=== PATIENT | male | born 1960 | race Caucasian/White ===

== ENCOUNTER 2016-11-29 22:21 | Emergency (ER) | payer MEDICARE, MEDICAID ==
[2016-11-30 01:25] VITALS: BP 102/76
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
== END 2016-11-30 01:24 | disposition home or self-care (01) ==
LOC: ED 22:21
DX: F10.129 Alcohol abuse with intoxication, unspecified (principal); R47.81 Slurred speech; F17.200 Nicotine dependence, unspecified, uncomplicated
CPT/HCPCS: 99283

== ENCOUNTER 2017-10-30 21:25 | Emergency (ER) | payer MEDICARE, MEDICAID ==
[2017-10-30 22:31] LABS: Benzodiazepine Urine Screen None Detected (None Detect)
[2017-10-30 22:36] LABS: Hematocrit 46 % (42-52); Hemoglobin 15.5 g/dl (14.0-18.0); Mean Corpuscular HGB Conc 34 g/dl (31-36); Mean Corpuscular Hemoglobin 34 pg (27-31); Mean Corpuscular Volume 100 fL (80-94); Mean Platelet Volume 9 um3 (7.4-10.4); Red Blood Count 4.57 10^6/ul (4.0-5.4); Red Cell Distribution Width 13 % (10.5-15); White Blood Count 7.3 10^3/ul (3.5-10.8)
[2017-10-30] MEDS ORDERED: cloNIDine TAB* 0.1 MG PO ONE (22:36)
[2017-10-30] MEDS ORDERED: LORazepam INJ* 2 MG/ML 1 ML VIAL IV PUSH ONE ×2 (22:36→23:23)
[2017-10-30 22:51] LABS: ALT 58 U/L (7-52); AST 33 U/L (13-39); Albumin 4.6 g/dL (3.2-5.2); Alkaline Phosphatase 77 U/L (34-104); Anion Gap 9 mmol/L (2-11); BUN/Creatinine Ratio 12.8 (8-20); Blood Urea Nitrogen 15 mg/dL (6-24); CO2 Carbon Dioxide 29 mmol/L (22-32); Calcium 10.2 mg/dL (8.6-10.3); Chloride 101 mmol/L (101-111); EGFR African American 82.3 (>60); Globulin 2.9 g/dL (2-4); Glucose 107 mg/dL (70-100); Magnesium 1.8 mg/dL (1.9-2.7); Potassium 3.4 mmol/L (3.5-5.0); Sodium 139 mmol/L (133-145); Total Protein 7.5 g/dL (6.4-8.9)
[2017-10-30 23:06] LABS: Acetaminophen < 15 mcg/mL; Alcohol < 10 mg/dL (<10); Salicylate < 2.50 mg/dL (<30)
[2017-10-30 23:20] LABS: TSH (Thyroid Stimulating Horm) 4.51 mcIU/mL (0.34-5.60)
[2017-10-31] MEDS ORDERED: OLANzapine TAB* 10 MG PO ONE (00:29)
[2017-10-31 00:34] VITALS: BP 180/104
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
== END 2017-10-31 03:06 | disposition home or self-care (01) ==
LOC: ED 21:25
DX: F39 Unspecified mood [affective] disorder (principal)
CPT/HCPCS: 36415; 80053; 80307; 80320; 80329; 83735; 84443; 85025; 93005; 96374; 96376; 99285; A9270-GY; G0480; J2060

== ENCOUNTER 2018-04-26 13:29 | Inpatient (IN) | payer MEDICARE, MEDICAID ==
[2018-04-26] MEDS ORDERED: NS 0.9% 1000 ML* 1,000 ML IV ONE (13:49)
[2018-04-26 14:30] LABS: ABS Basophils 0.1 10^3/ul (0-0.2); ABS Eosinophils 0 10^3/ul (0-0.6); ABS Lymphocytes 0.9 10^3/ul (1.0-4.8); ABS Monocytes 0.6 10^3/ul (0-0.8); ABS Neutrophils 4.8 10^3/ul (1.5-7.7); ABS Nucleated RBC 0 10^3/ul; Eosinophil % 0.1 % (0-6); Hematocrit 38 % (42-52); Hemoglobin 12.8 g/dl (14.0-18.0); Mean Corpuscular HGB Conc 34 g/dl (31-36); Mean Corpuscular Hemoglobin 34 pg (27-31); Mean Corpuscular Volume 99 fL (80-94); Nucleated Red Blood Cells % 0.1; Platelet Count 178 10^3/ul (150-450); Red Blood Count 3.78 10^6/ul (4.0-5.4); Red Cell Distribution Width 13 % (10.5-15); White Blood Count 6.4 10^3/ul (3.5-10.8)
[2018-04-26 14:42] LABS: EGFR Non-African American 64.7 (>60)
[2018-04-26] MEDS ORDERED: Iohexol 300* (CONTRAST) 10 ML SDV IV ONE (14:50)
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
[2018-04-26 15:28] LABS: INR 0.82 (0.77-1.02)
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
[2018-04-26] MEDS ORDERED: Morphine VIAL* 4 MG/ML VIAL (1 ml vial) IV ONE (15:49)
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
[2018-04-26 16:22] LABS: Urine Appearance Clear; Urine Blood 2+ (Negative); Urine Color Yellow; Urine Ketones Negative (Negative); Urine Protein Negative (Negative); Urine Specific Gravity 1.015 (1.010-1.030); Urine Urobilinogen Negative (Negative)
[2018-04-26] MEDS ORDERED: PROCHLORPERAZINE INJ 5 MG/ML 2 ML VIAL IV PRN (18:18)
--- NOTE | 2018-04-26 18:41 | PN ---
Progress Note - Progress Note Date of Service: 04/26/18 Note: The following pictures were taken in the ER at the time of admission on 04/26/18 with the patient's consent:
[2018-04-26] MEDS: clonazePAM TAB(*) 1 MG PO SCH (20:20)
[2018-04-26] MEDS: carBAMazepine ER TAB(*) 200 MG PO SCH (21:29)
[2018-04-26] MEDS: Heparin VIAL(*) 5000 UNITS/ML VIAL (FIVE THOUSAND) SUBCUT SCH (21:29)
[2018-04-26] MEDS: Morphine VIAL* 4 MG/ML VIAL (1 ml vial) IV PRN (21:29)
[2018-04-26] MEDS: OLANzapine TAB* 10 MG PO SCH (21:30)
[2018-04-26] MEDS ORDERED: Ramelteon (NF) 8 MG TAB PO SCH (23:45)
[2018-04-27] MEDS ORDERED: CMCS Melatonin (NF) 3 MG TAB PO PRN (00:08)
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
[2018-04-27] MEDS: Heparin VIAL(*) 5000 UNITS/ML VIAL (FIVE THOUSAND) SUBCUT SCH ×3 (05:36→21:35)
[2018-04-27] MEDS: Morphine VIAL* 4 MG/ML VIAL (1 ml vial) IV PRN ×4 (05:36→20:38)
[2018-04-27 06:23] LABS: Hematocrit 36 % (42-52); Hemoglobin 12.3 g/dl (14.0-18.0); Mean Corpuscular HGB Conc 35 g/dl (31-36); Mean Corpuscular Hemoglobin 34 pg (27-31); Mean Corpuscular Volume 100 fL (80-94); Mean Platelet Volume 8.5 um3 (7.4-10.4); Platelet Count 150 10^3/ul (150-450); Red Blood Count 3.57 10^6/ul (4.0-5.4); Red Cell Distribution Width 13 % (10.5-15); White Blood Count 4.6 10^3/ul (3.5-10.8)
[2018-04-27] MEDS: carBAMazepine ER TAB(*) 200 MG PO SCH ×2 (07:37→21:29)
[2018-04-27] MEDS: Omeprazole CAP* 20 MG PO SCH (07:37)
[2018-04-27] MEDS: clonazePAM TAB(*) 1 MG PO SCH ×3 (07:37→21:27)
[2018-04-27] MEDS: OLANzapine TAB* 10 MG PO SCH ×2 (07:38→21:31)
[2018-04-27] MEDS: Nicotine PATCH 21 MG/24 HR* PATCH TRANSDERM SCH (14:20)
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
[2018-04-27 16:25] LABS: EGFR Non-African American 78.6 (>60)
[2018-04-27] MEDS ORDERED: Mouth Piece, Nicotine* 1 EACH CARTRIDGE INH PRN (22:59)
[2018-04-28] MEDS ORDERED: Morphine VIAL* 4 MG/ML VIAL (1 ml vial) IV SCH
[2018-04-28] MEDS: Nicotine Inhaler* 10 MG AMP INH PRN ×2 (00:24→15:48)
[2018-04-28] MEDS: Mouth Piece, Nicotine* 1 EACH CARTRIDGE INH PRN (00:24)
[2018-04-28] MEDS: Morphine VIAL* 4 MG/ML VIAL (1 ml vial) IV PRN ×5 (00:25→21:37)
[2018-04-28] MEDS: Nicotine Patch Removal NOTE FOLLOW UP SCH ×2 (00:26→21:41)
[2018-04-28] MEDS: Heparin VIAL(*) 5000 UNITS/ML VIAL (FIVE THOUSAND) SUBCUT SCH ×3 (06:08→21:41)
[2018-04-28 06:52] LABS: EGFR Non-African American 95.2 (>60)
[2018-04-28] MEDS: Omeprazole CAP* 20 MG PO SCH (07:59)
[2018-04-28] MEDS: carBAMazepine ER TAB(*) 200 MG PO SCH ×2 (07:59→21:36)
[2018-04-28] MEDS: OLANzapine TAB* 10 MG PO SCH ×2 (08:00→21:35)
[2018-04-28] MEDS: clonazePAM TAB(*) 1 MG PO SCH ×3 (08:00→21:35)
[2018-04-28] MEDS: Nicotine PATCH 21 MG/24 HR* PATCH TRANSDERM SCH (08:00)
[2018-04-28] MEDS: Potassium Chlor TAB* 20 MEQ TAB.ER PO SCH ×4 (08:38→20:04)
[2018-04-28] MEDS ORDERED: oxyCODONE/Acetamin 5/325 MG* TAB PO PRN (14:56)
[2018-04-28] MEDS ORDERED: Acetaminophen TAB* 325 MG PO PRN (15:06)
[2018-04-28] MEDS ORDERED: Thiamine IV* 100 MG/ML 2 ML VIAL IM ONE (15:06)
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
[2018-04-28] MEDS: oxyCODONE/Acetamin 5/325 MG* TAB PO PRN ×2 (15:48→20:01)
[2018-04-28] MEDS ORDERED: Thiamine TAB* 100 MG TAB PO ONE (16:00)
[2018-04-28] MEDS: LORazepam TAB(*) 1 MG PO SCH ×2 (16:38→18:19)
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
[2018-04-29] MEDS: Heparin VIAL(*) 5000 UNITS/ML VIAL (FIVE THOUSAND) SUBCUT SCH ×3 (06:01→20:28)
[2018-04-29 06:29] LABS: EGFR Non-African American 85.6 (>60)
[2018-04-29] MEDS: carBAMazepine ER TAB(*) 200 MG PO SCH ×2 (08:50→20:26)
[2018-04-29] MEDS: Thiamine TAB* 100 MG TAB PO SCH (08:51)
[2018-04-29] MEDS: Omeprazole CAP* 20 MG PO SCH (08:51)
[2018-04-29] MEDS: Multivitamins/Minerals TAB PO SCH (08:51)
[2018-04-29] MEDS: Nicotine PATCH 21 MG/24 HR* PATCH TRANSDERM SCH (08:51)
[2018-04-29] MEDS: Folic Acid TAB* 1 MG PO SCH (08:51)
[2018-04-29] MEDS: OLANzapine TAB* 10 MG PO SCH ×2 (08:51→20:27)
[2018-04-29] MEDS: clonazePAM TAB(*) 1 MG PO SCH ×3 (08:51→20:26)
[2018-04-29] MEDS: LORazepam TAB(*) 1 MG PO SCH ×2 (11:49→14:03)
[2018-04-29] MEDS: oxyCODONE/Acetamin 5/325 MG* TAB PO PRN ×3 (11:52→20:25)
[2018-04-29] MEDS: Morphine VIAL* 4 MG/ML VIAL (1 ml vial) IV PRN ×2 (14:02→19:14)
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
[2018-04-29] MEDS: Nicotine Patch Removal NOTE FOLLOW UP SCH (20:29)
[2018-04-30] MEDS: Morphine VIAL* 4 MG/ML VIAL (1 ml vial) IV PRN ×2 (00:13→09:18)
[2018-04-30] MEDS: Heparin VIAL(*) 5000 UNITS/ML VIAL (FIVE THOUSAND) SUBCUT SCH ×3 (05:06→20:18)
[2018-04-30] MEDS: Folic Acid TAB* 1 MG PO SCH (08:12)
[2018-04-30] MEDS: clonazePAM TAB(*) 1 MG PO SCH ×5 (08:12→20:17)
[2018-04-30] MEDS: Multivitamins/Minerals TAB PO SCH (08:12)
[2018-04-30] MEDS: Omeprazole CAP* 20 MG PO SCH (08:12)
[2018-04-30] MEDS: Thiamine TAB* 100 MG TAB PO SCH (08:12)
[2018-04-30] MEDS: OLANzapine TAB* 10 MG PO SCH ×2 (08:12→20:16)
[2018-04-30] MEDS: carBAMazepine ER TAB(*) 200 MG PO SCH ×2 (08:13→20:16)
[2018-04-30] MEDS: Nicotine PATCH 21 MG/24 HR* PATCH TRANSDERM SCH (08:19)
[2018-04-30 08:25] LABS: EGFR Non-African American 85.6 (>60)
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
[2018-04-30] MEDS: Nicotine Inhaler* 10 MG AMP INH PRN (11:51)
[2018-04-30] MEDS: Atenolol TAB* 25 MG PO SCH (11:51)
[2018-04-30] MEDS: Mouth Piece, Nicotine* 1 EACH CARTRIDGE INH PRN (11:51)
[2018-04-30] MEDS: oxyCODONE/Acetamin 5/325 MG* TAB PO PRN ×3 (11:56→20:22)
[2018-04-30] MEDS: Nicotine Patch Removal NOTE FOLLOW UP SCH (20:23)
[2018-05-01 05:40] LABS: EGFR Non-African American 71.8 (>60)
[2018-05-01] MEDS: Heparin VIAL(*) 5000 UNITS/ML VIAL (FIVE THOUSAND) SUBCUT SCH ×3 (06:14→14:48)
[2018-05-01] MEDS: carBAMazepine ER TAB(*) 200 MG PO SCH (09:47)
[2018-05-01] MEDS: clonazePAM TAB(*) 1 MG PO SCH ×3 (09:48→14:42)
[2018-05-01] MEDS: Thiamine TAB* 100 MG TAB PO SCH (09:48)
[2018-05-01] MEDS: Multivitamins/Minerals TAB PO SCH (09:48)
[2018-05-01] MEDS: Omeprazole CAP* 20 MG PO SCH (09:48)
[2018-05-01] MEDS: Folic Acid TAB* 1 MG PO SCH (09:48)
[2018-05-01] MEDS: Nicotine PATCH 21 MG/24 HR* PATCH TRANSDERM SCH (09:49)
[2018-05-01] MEDS: Atenolol TAB* 25 MG PO SCH (09:49)
[2018-05-01] MEDS: OLANzapine TAB* 10 MG PO SCH (10:51)
[2018-05-01] MEDS: Nicotine Inhaler* 10 MG AMP INH PRN ×2 (10:54→14:41)
[2018-05-01] MEDS: oxyCODONE/Acetamin 5/325 MG* TAB PO PRN (10:55)
[2018-05-01] MEDS ORDERED: traMADol TAB* 50 MG PO PRN (11:45)
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
[2018-05-01] MEDS ORDERED: Potassium Chlor TAB* 10 MEQ TAB.ER PO SCH (16:00)
[2018-05-01] MEDS ORDERED: Atorvastatin* 20 MG TAB PO SCH (17:00)
[2018-05-01 18:57] VITALS: BP 167/90
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
[2018-05-02] MEDS ORDERED: Cyanocobalamin TAB* 500 MCG PO SCH (09:00)
== END 2018-05-01 17:00 | disposition home or self-care (01) | DRG 565 ==
LOC: ED 13:29 → MED 18:39
PROVIDERS: ADMIT Hospitalist; ATTEND Internal Medicine
DX: T79.6XXA Traumatic ischemia of muscle, initial encounter (principal); F10.239 Alcohol dependence with withdrawal, unspecified; Y04.2XXA Assault by strike against or bumped into by another person, initial encounter; G44.89 Other headache syndrome; F31.9 Bipolar disorder, unspecified; I10 Essential (primary) hypertension; E78.5 Hyperlipidemia, unspecified; Y90.0 Blood alcohol level of less than 20 mg/100 ml; F41.9 Anxiety disorder, unspecified; D53.9 Nutritional anemia, unspecified; K21.9 Gastro-esophageal reflux disease without esophagitis; K22.70 Barrett's esophagus without dysplasia; E87.6 Hypokalemia; S02.2XXA Fracture of nasal bones, initial encounter for closed fracture; F17.210 Nicotine dependence, cigarettes, uncomplicated; Z79.899 Other long term (current) drug therapy; Z88.8 Allergy status to other drugs, medicaments and biological substances; Z82.3 Family history of stroke; Z80.9 Family history of malignant neoplasm, unspecified; E04.1 Nontoxic single thyroid nodule; I45.10 Unspecified right bundle-branch block
CPT/HCPCS: 36415; 70450; 70486; 71260; 72125; 74177; 80048; 80053; 80156; 80307; 80320; 81003; 81015; 82550; 82607; 83540; 83550; 83605; 84484; 85025; 85027; 85610; 93005; 99283; A9270-GY; G0480; J1644; J2270; J3411; Q9967

== ENCOUNTER 2020-06-16 09:07 | Inpatient (IN) ==
[2020-06-16 10:53] LABS: ABS Lymphocytes 0.9 10^3/ul (1.0-4.8); ABS Monocytes 0.6 10^3/ul (0-0.8); Eosinophil % 0.4 %; Hematocrit 42 % (42-52); Hemoglobin 14.2 g/dL (14.0-18.0); Lymphocyte % 10.9 %; Mean Corpuscular HGB Conc 34 g/dL (31-36); Mean Corpuscular Hemoglobin 34 pg (27-31); Mean Corpuscular Volume 100 fL (80-94); Platelet Count 333 10^3/uL (150-450); Red Blood Count 4.16 10^6 /uL (4.18-5.48); Red Cell Distribution Width 14 % (10-15)
[2020-06-16 11:04] LABS: ALT 16 U/L (7-52); AST 22 U/L (13-39); Albumin 3.9 g/dL (3.2-5.2); Albumin/Globulin Ratio 1.7 (1-3); Alkaline Phosphatase 75 U/L (34-104); Anion Gap 8 mmol/L (2-11); BUN/Creatinine Ratio 7.5 (8-20); Blood Urea Nitrogen 6 mg/dL (6-24); CO2 Carbon Dioxide 25 mmol/L (22-32); Chloride 101 mmol/L (101-111); EGFR African American 119.3 (>60); EGFR Non-African American 98.6 (>60); Globulin 2.3 g/dL (2-4); Glucose 109 mg/dL (70-100); Potassium 4.8 mmol/L (3.5-5.0); Sodium 134 mmol/L (135-145); Total Protein 6.2 g/dL (6.4-8.9)
[2020-06-16 11:37] LABS: Urine Appearance Clear; Urine Bilirubin Negative (Negative); Urine Blood Negative (Negative); Urine Color Straw; Urine Glucose Negative (Negative); Urine Ketones Trace (Negative); Urine Nitrite Negative (Negative); Urine Protein Negative (Negative); Urine Specific Gravity 1.004 (1.010-1.030); Urine Urobilinogen Negative (Negative)
[2020-06-16 11:46] LABS: Acetaminophen < 15 mcg/mL; Alcohol, S < 10 mg/dL (<10); Salicylate < 2.50 mg/dL (<30)
[2020-06-16 12:01] LABS: TSH (Thyroid Stimulating Horm) 0.61 mcIU/mL (0.34-5.60)
[2020-06-16 12:36] LABS: Urine Benzodiazepine Screen None Detected (None Detect); Urine Opiates Screen None Detected (None Detect)
[2020-06-16] MEDS ORDERED: Thiamine 100 MG/ML 2 ml VIAL (200 mg) IM ONE (12:46)
[2020-06-16] MEDS ORDERED: Lorazepam PYXIS KEY PRN (18:50)
[2020-06-16] MEDS: LORazepam PO 0-6 for WAM protocol PO SCH ×3 (18:51→22:33)
[2020-06-16] MEDS ORDERED: Al Hydrox/Mg Hydrox/Simet LIQ 30 ML UDC PO PRN (18:51)
[2020-06-16] MEDS: Nicotine GUM 2MG FRUIT FLAVOR PO PRN (18:54)
[2020-06-16] MEDS ORDERED: LORazepam IM 0-6 mg for WAM protocol IM SCH (19:00)
[2020-06-17] MEDS ORDERED: Multivitamins/Minerals TAB PO SCH (09:00)
[2020-06-17] MEDS: Vitamin THERAPEUTIC TAB PO SCH (09:40)
[2020-06-17] MEDS: Nicotine PATCH 21 MG/24 HR PATCH TRANSDERM SCH (09:40)
[2020-06-17] MEDS: LORazepam PO 0-6 for WAM protocol PO SCH ×3 (11:28→22:17)
[2020-06-18] MEDS: Nicotine PATCH 21 MG/24 HR PATCH TRANSDERM SCH (08:08)
[2020-06-18] MEDS: Potassium Chlor 10 meq TAB PO SCH (08:09)
[2020-06-18] MEDS: Vitamin THERAPEUTIC TAB PO SCH (08:09)
[2020-06-18] MEDS: Nicotine GUM 2MG FRUIT FLAVOR PO PRN ×3 (12:25→19:03)
[2020-06-18] MEDS: LORazepam PO 0-6 for WAM protocol PO SCH ×4 (18:11→23:33)
[2020-06-19] MEDS: LORazepam PO 0-6 for WAM protocol PO SCH ×4 (02:06→19:40)
[2020-06-19] MEDS: Nicotine PATCH 21 MG/24 HR PATCH TRANSDERM SCH (10:08)
[2020-06-19] MEDS: Potassium Chlor 10 meq TAB PO SCH (10:08)
[2020-06-19] MEDS: Vitamin THERAPEUTIC TAB PO SCH (10:09)
[2020-06-20] MEDS: Potassium Chlor 10 meq TAB PO SCH (11:23)
[2020-06-20] MEDS: Nicotine PATCH 21 MG/24 HR PATCH TRANSDERM SCH (11:23)
[2020-06-20] MEDS: Vitamin THERAPEUTIC TAB PO SCH (11:23)
[2020-06-20] MEDS: Nicotine GUM 2MG FRUIT FLAVOR PO PRN (12:48)
[2020-06-20] MEDS: LORazepam PO 0-6 for WAM protocol PO SCH (22:22)
[2020-06-21] MEDS: LORazepam PO 0-6 for WAM protocol PO SCH ×2 (02:32→06:31)
[2020-06-21] MEDS: Vitamin THERAPEUTIC TAB PO SCH (08:17)
[2020-06-21] MEDS: Potassium Chlor 10 meq TAB PO SCH (08:17)
[2020-06-21] MEDS: Nicotine PATCH 21 MG/24 HR PATCH TRANSDERM SCH (08:19)
[2020-06-22] MEDS: Potassium Chlor 10 meq TAB PO SCH (10:40)
[2020-06-22] MEDS: Vitamin THERAPEUTIC TAB PO SCH (10:41)
[2020-06-22] MEDS: Nicotine PATCH 21 MG/24 HR PATCH TRANSDERM SCH (10:42)
[2020-06-22] MEDS: Nicotine GUM 2MG FRUIT FLAVOR PO PRN ×2 (11:04→21:25)
[2020-06-22] MEDS ORDERED: Polyethylene Glycol 3350 17 GM PACKET ONE (17:24)
[2020-06-23 08:26] LABS: HDL Cholesterol 58.4 mg/dL
[2020-06-23 08:47] LABS: Carbamazepine 9.7 mcg/mL (4.0-12.0)
[2020-06-23] MEDS ORDERED: Polyethylene Glycol 3350 17 GM PACKET PO PRN (09:00)
[2020-06-23] MEDS: Potassium Chlor 10 meq TAB PO SCH (10:37)
[2020-06-23] MEDS: Vitamin THERAPEUTIC TAB PO SCH (10:37)
[2020-06-23] MEDS: Nicotine PATCH 21 MG/24 HR PATCH TRANSDERM SCH (10:46)
[2020-06-23] MEDS: Nicotine GUM 2MG FRUIT FLAVOR PO PRN (11:28)
[2020-06-24] MEDS: Potassium Chlor 10 meq TAB PO SCH (08:57)
[2020-06-24] MEDS: Nicotine PATCH 21 MG/24 HR PATCH TRANSDERM SCH (08:57)
[2020-06-24] MEDS: Vitamin THERAPEUTIC TAB PO SCH (08:58)
[2020-06-24 10:04] VITALS: BP 150/75
[2020-06-24] MEDS: Nicotine GUM 2MG FRUIT FLAVOR PO PRN (11:06)
== END 2020-06-24 14:15 | disposition home or self-care (01) | DRG 885 ==
LOC: ED 09:07 → BSU 17:47
PROVIDERS: ADMIT Psychiatry & Neurology Psychiatry; ATTEND Psychiatry & Neurology Psychiatry

== ENCOUNTER 2021-09-30 08:43 | Inpatient (IN) ==
[2021-09-30 10:20] LABS: ABS Basophils 0.1 10^3/ul (0-0.2); ABS Eosinophils 0.2 10^3/ul (0-0.6); ABS Monocytes 0.7 10^3/ul (0-0.8); ABS Neutrophils 6.3 10^3/ul (1.5-7.7); Eosinophil % 1.6 %; Hematocrit 42 % (42-52); Hemoglobin 14.1 g/dL (14.0-18.0); Lymphocyte % 21.2 %; Mean Corpuscular HGB Conc 33 g/dL (31-36); Mean Corpuscular Hemoglobin 32 pg (27-31); Mean Corpuscular Volume 97 fL (80-94); Mean Platelet Volume 9.6 fL (7.4-10.4); Platelet Count 213 10^3/uL (150-450); Red Blood Count 4.36 10^6 /uL (4.18-5.48); Red Cell Distribution Width 13 % (10-15); White Blood Count 9.2 10^3/uL (3.5-10.8)
[2021-09-30 10:37] LABS: ALT 10 U/L (7-52); AST 20 U/L (13-39); Albumin 4.1 g/dL (3.2-5.2); Albumin/Globulin Ratio 1.7 (1-3); Alkaline Phosphatase 55 U/L (35-149); Anion Gap 6 mmol/L (2-11); Blood Urea Nitrogen 11 mg/dL (6-24); CO2 Carbon Dioxide 30 mmol/L (22-32); Calcium 9.4 mg/dL (8.6-10.3); Chloride 102 mmol/L (101-111); Globulin 2.4 g/dL (2-4); Glucose 88 mg/dL (70-100); Lipase 20 U/L (11.0-82.0); Magnesium 1.8 mg/dL (1.9-2.7); Potassium 4.4 mmol/L (3.5-5.0); Sodium 138 mmol/L (135-145); Total Protein 6.5 g/dL (6.4-8.9)
[2021-09-30 11:37] LABS: Acetaminophen < 15 mcg/mL; Alcohol, S < 13 mg/dL (<13); Carbamazepine 7.9 mcg/mL (4.0-12.0); Salicylate < 2.50 mg/dL (<30)
[2021-09-30 11:38] LABS: TSH Ultra Thyroid Stim Horm 1.62 mcIU/mL (0.34-5.60)
[2021-09-30 12:27] LABS: Urine Appearance Clear; Urine Bilirubin Negative (Negative); Urine Blood Negative (Negative); Urine Color Yellow; Urine Glucose Negative (Negative); Urine Ketones Trace (Negative); Urine Nitrite Negative (Negative); Urine Protein Negative (Negative); Urine Specific Gravity 1.004 (1.002-1.030); Urine Urobilinogen Negative (Negative)
[2021-09-30] MEDS ORDERED: Al Hydrox/Mg Hydrox/Simet LIQ 30 ML UDC PO PRN (15:12)
[2021-09-30] MEDS ORDERED: Nicotine GUM 2MG FRUIT FLAVOR PO PRN (15:12)
[2021-09-30] MEDS ORDERED: CLONAZEPAM 2 MG PO PRN (15:14)
[2021-09-30 16:29] LABS: Rapid COVID-19 Molecular Undetected (Undetected)
[2021-09-30] MEDS ORDERED: Gabapentin 600 mg TAB (NF) PO SCH (17:00)
[2021-10-01] MEDS: CMC:Omeprazole 20 mg CAP (NF) PO SCH (08:18)
[2021-10-01] MEDS ORDERED: Omeprazole 20 mg CAP (NF) PO SCH (09:00)
[2021-10-02] MEDS: CMC:Omeprazole 20 mg CAP (NF) PO SCH (08:08)
[2021-10-02] MEDS: Nicotine PATCH 21 MG/24 HR PATCH TRANSDERM SCH (14:10)
[2021-10-03] MEDS: CMC:Omeprazole 20 mg CAP (NF) PO SCH (07:43)
[2021-10-03] MEDS: Nicotine PATCH 21 MG/24 HR PATCH TRANSDERM SCH (07:49)
[2021-10-03 08:01] LABS: HDL Cholesterol 42.5 mg/dL
[2021-10-04] MEDS: CMC:Omeprazole 20 mg CAP (NF) PO SCH (09:11)
[2021-10-04] MEDS: Nicotine PATCH 21 MG/24 HR PATCH TRANSDERM SCH (09:15)
[2021-10-05] MEDS: Nicotine PATCH 21 MG/24 HR PATCH TRANSDERM SCH (08:36)
[2021-10-05] MEDS: CMC:Omeprazole 20 mg CAP (NF) PO SCH (08:40)
[2021-10-06] MEDS: CMC:Omeprazole 20 mg CAP (NF) PO SCH (09:20)
[2021-10-06] MEDS: Nicotine PATCH 21 MG/24 HR PATCH TRANSDERM SCH (09:33)
[2021-10-07] MEDS: Nicotine PATCH 21 MG/24 HR PATCH TRANSDERM SCH (08:48)
[2021-10-07] MEDS: CMC:Omeprazole 20 mg CAP (NF) PO SCH (08:48)
[2021-10-08] MEDS: CMC:Omeprazole 20 mg CAP (NF) PO SCH (09:43)
[2021-10-08] MEDS: Nicotine PATCH 21 MG/24 HR PATCH TRANSDERM SCH (10:24)
[2021-10-09] MEDS: CMC:Omeprazole 20 mg CAP (NF) PO SCH (09:51)
[2021-10-09] MEDS: Nicotine PATCH 21 MG/24 HR PATCH TRANSDERM SCH (09:52)
[2021-10-10] MEDS: Nicotine PATCH 21 MG/24 HR PATCH TRANSDERM SCH (07:43)
[2021-10-10] MEDS: CMC:Omeprazole 20 mg CAP (NF) PO SCH (10:17)
[2021-10-11] MEDS: CMC:Omeprazole 20 mg CAP (NF) PO SCH (11:38)
[2021-10-11] MEDS: Nicotine PATCH 21 MG/24 HR PATCH TRANSDERM SCH (11:38)
[2021-10-12] MEDS: CMC:Omeprazole 20 mg CAP (NF) PO SCH (09:53)
[2021-10-12] MEDS: Nicotine PATCH 21 MG/24 HR PATCH TRANSDERM SCH (10:05)
[2021-10-13] MEDS: CMC:Omeprazole 20 mg CAP (NF) PO SCH (09:40)
[2021-10-13] MEDS: Nicotine PATCH 21 MG/24 HR PATCH TRANSDERM SCH (09:47)
[2021-10-13 13:13] LABS: Rapid COVID-19 Molecular Undetected (Undetected)
[2021-10-14] MEDS: Nicotine PATCH 21 MG/24 HR PATCH TRANSDERM SCH (10:06)
[2021-10-14] MEDS: CMC:Omeprazole 20 mg CAP (NF) PO SCH (10:07)
[2021-10-14 10:45] VITALS: BP 113/49
== END 2021-10-14 15:10 | disposition home or self-care (01) | DRG 885 ==
LOC: ED 08:43 → BSU 19:04
PROVIDERS: ADMIT Psychiatry & Neurology Psychiatry; ATTEND Psychiatry & Neurology Psychiatry